=== PATIENT | male | born 1955 | race Caucasian/White ===

== ENCOUNTER 2016-02-10 22:55 | Inpatient (IN) | payer BC ==
[~2016-02-10] VITALS: Ht 172.7 cm; Wt 130.6 kg
[2016-02-11] VITALS (7 sets, daily range): BP systolic 115–150; RESP 16–18; TEMP 97.4–98.9; Ht 172.7 cm; Wt 130.6 kg
[2016-02-11] MEDS ORDERED: SODIUM CHLORIDE 0.9% 500 ML IV ONE (00:09)
[2016-02-11] MEDS ORDERED: INSULIN DRIP 1 UNIT/ML 100 ML IV SCH (01:35)
[2016-02-11] MEDS ORDERED: DEXTROSE 50% SYRINGE 50 ML IV PRN ×2 (01:35→02:05)
[2016-02-11] MEDS ORDERED: MAG HYDROX 30 ML UDC PO PRN (02:05)
[2016-02-11] MEDS ORDERED: TEMAZEPAM 15 MG CAP PO PRN (02:05)
[2016-02-11] MEDS ORDERED: GLUCAGON 1 MG VIAL IM PRN (02:05)
[2016-02-11] MEDS ORDERED: BISACODYL EC 5 MG TAB PO PRN (02:05)
[2016-02-11] MEDS ORDERED: SALINE FLUSH 10 ML FLUSH PRN (02:05)
[2016-02-11] MEDS ORDERED: ALU/MAG/SIM 30 ML UDC PO PRN (02:05)
[2016-02-11] MEDS ORDERED: BISACODYL 10 MG SUPP RECTAL PRN (02:05)
[2016-02-11] MEDS ORDERED: SODIUM CHLORIDE 0.9% 1,000 ML IV SCH ×2 (02:10→16:25)
[2016-02-11] MEDS: SODIUM CHLORIDE 0.9% FLUSH BAG 500 ML IV SCH (06:00)
[2016-02-11] MEDS: SALINE FLUSH 10 ML FLUSH SCH ×2 (08:00→20:46)
[2016-02-11] MEDS ORDERED: ENOXAPARIN 40 MG/0.4 ML SYR SUBQ SCH (09:00)
[2016-02-11] MEDS ORDERED: MISSING DOSE XX ONE ×2 (10:10→19:50)
[2016-02-11] MEDS ORDERED: SODIUM CHLORIDE 0.9% 1,000 ML IV ONE (10:10)
[2016-02-11] MEDS: CLOPIDOGREL 75 MG TAB PO SCH (12:15)
[2016-02-11] MEDS: FLINTSTONES COMPLETE PO SCH (12:15)
[2016-02-11] MEDS: CITALOPRAM 20 MG TAB PO SCH (12:16)
[2016-02-11] MEDS: PANTOPRAZOLE 40 MG TAB PO SCH (12:16)
[2016-02-11] MEDS: LEVOTHYROXINE 0.075 MG TAB PO SCH (12:16)
[2016-02-11] MEDS: TOPIRAMATE 100 MG TAB PO SCH ×2 (12:16→20:44)
[2016-02-11] MEDS: SACCHA BOULARDII 250MG CAP PO SCH ×2 (12:17→20:44)
[2016-02-11] MEDS: Carvedilol 6.25 MG TAB PO SCH ×2 (12:17→21:00)
[2016-02-11] MEDS: PHENobarbital 30 MG TAB PO SCH ×3 (13:32→20:45)
[2016-02-11] MEDS: LEVEMIR INSULIN SUBQ SCH (15:04)
[2016-02-11] MEDS: ALPRAZOLAM 0.25 MG TAB PO PRN ×2 (16:22→20:14)
[2016-02-11] MEDS ORDERED: LOPERAMIDE 2 MG CAPSULE PO PRN (16:25)
[2016-02-11] MEDS: LEVETIRACETAM 250 MG TAB PO SCH (20:44)
[2016-02-11] MEDS: TAMSULOSIN 0.4 MG CAP PO SCH (20:45)
[2016-02-11] MEDS ORDERED: LEVEMIR INSULIN SUBQ SCH (21:00)
[2016-02-12 04:03] VITALS: BP_SYST 141; RESP 18; TEMP 98.4
[2016-02-12] MEDS: SODIUM CHLORIDE 0.9% FLUSH BAG 500 ML IV SCH (06:23)
[2016-02-12] MEDS: LEVOTHYROXINE 0.075 MG TAB PO SCH (06:23)
[2016-02-12] MEDS: PANTOPRAZOLE 40 MG TAB PO SCH (06:23)
[2016-02-12 07:55] VITALS: BP_SYST 126; RESP 18; TEMP 98.6
[2016-02-12] MEDS: LEVEMIR INSULIN SUBQ SCH ×2 (08:33→20:10)
[2016-02-12] MEDS: PHENobarbital 30 MG TAB PO SCH ×4 (08:34→20:05)
[2016-02-12] MEDS: FLINTSTONES COMPLETE PO SCH (08:34)
[2016-02-12] MEDS: CLOPIDOGREL 75 MG TAB PO SCH (08:34)
[2016-02-12] MEDS: Carvedilol 6.25 MG TAB PO SCH ×2 (08:35→20:05)
[2016-02-12] MEDS: LEVETIRACETAM 250 MG TAB PO SCH ×2 (08:35→20:05)
[2016-02-12] MEDS: SACCHA BOULARDII 250MG CAP PO SCH ×2 (08:35→20:05)
[2016-02-12] MEDS: CITALOPRAM 20 MG TAB PO SCH (08:35)
[2016-02-12] MEDS: TOPIRAMATE 100 MG TAB PO SCH ×2 (08:36→20:05)
[2016-02-12] MEDS: Losartan 25 MG TAB PO SCH (08:36)
[2016-02-12] MEDS: SALINE FLUSH 10 ML FLUSH SCH ×2 (08:37→20:03)
[2016-02-12 11:04] VITALS: BP_SYST 144; RESP 18; TEMP 99
[2016-02-12] MEDS ORDERED: humuLIN N INSULIN SUBQ ONE (12:20)
[2016-02-12] MEDS: ALPRAZOLAM 0.25 MG TAB PO PRN ×2 (12:25→20:04)
[2016-02-12 17:00] VITALS: BP_SYST 105; RESP 18; TEMP 98
[2016-02-12 19:36] VITALS: BP_SYST 102; RESP 18; TEMP 98
[2016-02-12] MEDS: TAMSULOSIN 0.4 MG CAP PO SCH (20:05)
[2016-02-12] MEDS ORDERED: Atorvastatin 10 MG TAB PO SCH (21:00)
[2016-02-12 23:55] VITALS: BP_SYST 132; RESP 16; TEMP 98.1
[2016-02-13 03:52] VITALS: BP_SYST 120; RESP 16; TEMP 98.3
[2016-02-13] MEDS: SODIUM CHLORIDE 0.9% FLUSH BAG 500 ML IV SCH (04:09)
[2016-02-13] MEDS: PANTOPRAZOLE 40 MG TAB PO SCH (05:08)
[2016-02-13] MEDS: LEVOTHYROXINE 0.075 MG TAB PO SCH (05:08)
[2016-02-13 07:32] VITALS: BP_SYST 141; RESP 16; TEMP 98
[2016-02-13] MEDS: LEVEMIR INSULIN SUBQ SCH (08:28)
[2016-02-13] MEDS: SALINE FLUSH 10 ML FLUSH SCH (08:29)
[2016-02-13] MEDS: TOPIRAMATE 100 MG TAB PO SCH (08:29)
[2016-02-13] MEDS: CITALOPRAM 20 MG TAB PO SCH (08:30)
[2016-02-13] MEDS: LEVETIRACETAM 250 MG TAB PO SCH (08:30)
[2016-02-13] MEDS: Losartan 25 MG TAB PO SCH (08:30)
[2016-02-13] MEDS: FLINTSTONES COMPLETE PO SCH (08:30)
[2016-02-13] MEDS: Carvedilol 6.25 MG TAB PO SCH (08:31)
[2016-02-13] MEDS: CLOPIDOGREL 75 MG TAB PO SCH (08:31)
[2016-02-13] MEDS: PHENobarbital 30 MG TAB PO SCH ×2 (08:31→12:12)
[2016-02-13] MEDS: SACCHA BOULARDII 250MG CAP PO SCH (08:32)
[2016-02-13] MEDS: ALPRAZOLAM 0.25 MG TAB PO PRN (10:27)
[2016-02-13 10:55] VITALS: BP_SYST 122; RESP 18; TEMP 98
[2016-02-13 14:22] VITALS: BP_SYST 122; RESP 18; TEMP 98
[2016-02-13] MEDS ORDERED: LEVEMIR INSULIN SUBQ SCH ×2 (21:00)
== END 2016-02-13 16:00 | disposition home or self-care (01) | DRG 638 ==
LOC: ENRESERVDT → ENRESERVTM → ENRESERV → ER 22:55 → EMR 02-11 01:19 → ENPENDDIS 02-11 01:19 → 4THE 02-11 02:01
PROVIDERS: ADMIT Hospitalist; ATTEND Hospitalist
CPT/HCPCS: 71010; 80048; 80053; 80061; 82607; 82746; 82947; 83036; 83540; 83615; 84439; 84443; 84466; 85025; 93005; 94799; 96360; 99233; 99238